=== PATIENT | female | born 2000 | race Caucasian/White ===

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

== ENCOUNTER → 2022-11-27 | Outpatient (CLI) | payer BC ==
--- NOTE | 2022-11-27 10:39 | US ---
EXAMINATION TYPE: US abdomen complete DATE OF EXAM: 11/27/2022 COMPARISON: NONE CLINICAL INDICATION: Female, 22 years old with history of R10.30 lower abdominal pain; Intermittent a bdominal pain 8-9 years, worse within the last year TECHNIQUE: Multiple sonographic images of the abdomen are obtained. FINDINGS: EXAM MEASUREMENTS: Liver Length: 14.5 cm Gallbladder Wall: 0.2 cm CBD: 0.2 cm Spleen: 9.5 cm Right Kidney: 10.4 x 3.6 x 5.4 cm Left Kidney: 10.4 x 4.0 x 4.2 cm Pancreas: Tail obscured by overlying bowel gas. Visualized portions within normal limits. Liver: wnl Gallbladder: no evidence of stones Evidence for sonographic Marcelino's sign: no CBD: wnl Spleen: wnl Right Kidney: no evidence of hydronephrosis Left Kidney: no evidence of hydronephrosis Upper IVC: appears prominent Abd Aorta: wnl IMPRESSION: Unremarkable sonographic examination of the abdomen.
== END | disposition home or self-care (01) ==
LOC: RADUSWWP 08:22
PROVIDERS: ATTEND Internal Medicine Gastroenterology
DX: R10.30 Lower abdominal pain, unspecified (principal)
CPT/HCPCS: 76700